=== PATIENT | female | born 1965 | race Caucasian/White ===

== ENCOUNTER → 2024-04-24 08:59 | Outpatient (REF) | payer BC, SELFPAY | LOC: MRI 3T 08:59 | PROVIDERS: ATTENDING PHYSICIAN Internal Medicine | DX: M54.12 Radiculopathy, cervical region (principal); M54.16 Radiculopathy, lumbar region | CPT/HCPCS: 72141 ==

== ENCOUNTER → 2024-04-25 06:34 | Outpatient (REF) | payer BC, SELFPAY | LOC: MRI 3T 06:34 | PROVIDERS: ATTENDING PHYSICIAN Internal Medicine | DX: M54.12 Radiculopathy, cervical region (principal); M54.16 Radiculopathy, lumbar region | CPT/HCPCS: 72148 ==

== ENCOUNTER → 2024-04-26 10:14 | Outpatient (REF) | payer BC, SELFPAY ==
[2024-04-26 11:02] LABS: Urine Albumin Negative (Neg - Trace); Urine Bilirubin Negative (Negative); Urine Character Clear (Clear); Urine Color Yellow; Urine Glucose Negative (Negative); Urine Ketone Negative (Negative); Urine Leukocyte 1+ (Negative); Urine Nitrite Negative (Negative); Urine Occult Blood Negative (Negative); Urine Urobilinogen Negative (Neg - 1+)
[2024-04-26 11:16] LABS: % Basophils 0.9 % (0-2); % Eosinophils 2.5 % (0-6); % Immature Granulocytes 0.3 % (0-0.5); % Lymphocytes 31.1 % (20.5-51.1); % Neutrophils 58.2 % (42.2-75.2); Absolute Basophils 0.1 10^3/uL (0-0.2); Absolute Eosinophils 0.2 10^3/uL (0-0.7); Absolute Lymphocytes 2.9 10^3/uL (1.2-3.4); Absolute Monocytes 0.7 10^3/uL (0.1-0.6); Absolute Neutrophils 5.4 10^3/uL (1.4-6.5); Hematocrit 41.7 % (37.0-47.0); Hemoglobin 13.8 g/dL (12.0-16.0); Mean Corp Hgb Conc. 33.1 g/dL (33.0-37.0); Mean Corpuscular Hgb 28.5 pg (27.0-31.0); Mean Platelet Volume 9.2 fL (7.4-10.4); Nucleated Red Blood Cells % 0 %; Platelet Count 253 10^3/uL (130-400); Red Blood Cell Count 4.85 10^6/uL (4.20-5.40); Red Cell Dist. Width 14.1 % (11.5-14.5); White Blood Cell Count 9.2 10^3/uL (4.8-10.8)
[2024-04-26 11:43] LABS: Urine Red Blood Cell 0-2 /HPF (0-2)
[2024-04-26 11:44] LABS: Urine Bacteria Few (Negative)
[2024-04-26 12:02] LABS: Glycohemoglobin (HgbA1c) 5.6 % (4.0-5.6)
[2024-04-26 12:06] LABS: ALT (SGPT) 24 U/L (0-35); AST (SGOT) 35 U/L (14-36); Albumin 5.1 g/dl (3.5-5.0); Alkaline Phosphatase 86 U/L (38-126); Blood Urea Nitrogen 18 mg/dl (7-17); Carbon Dioxide 27 mmol/L (22-30); Chloride 99 mmol/L (98-107); Glucose 93 mg/dl (70-99); HDL Cholesterol 54 mg/dl; LDL Cholesterol, Calculated 118 mg/dl; Potassium 4.6 mmol/L (3.5-5.1); Sodium 141 mmol/L (135-145); Total Bilirubin 0.5 mg/dl (0.2-1.3); Total Cholesterol 221 mg/dl (50-199); Total Protein 7.9 g/dl (6.3-8.2); Triglyceride 247 mg/dl (10-149); Very Low Density Lipoprotein 49 mg/dl (0-30); eGFR > 60.00
[2024-04-26 12:17] LABS: TSH 0.23 uIU/ml (0.47-4.68)
== END ==
LOC: REG 10:14
PROVIDERS: ATTENDING PHYSICIAN Internal Medicine
DX: Z00.00 Encounter for general adult medical examination without abnormal findings (principal); E55.9 Vitamin D deficiency, unspecified
CPT/HCPCS: 36415; 80053; 80061; 81003; 81015; 82306; 83036; 84443; 85025; 87086

== ENCOUNTER → 2024-06-21 13:38 | Outpatient (REF) | payer BC, SELFPAY ==
[2024-06-21 15:53] VITALS: BP 134/75
== END ==
LOC: RADI 13:38
PROVIDERS: ATTENDING PHYSICIAN Internal Medicine
DX: M54.2 Cervicalgia (principal); M79.601 Pain in right arm; R20.0 Anesthesia of skin
CPT/HCPCS: 62321

== ENCOUNTER → 2024-06-30 11:55 | Outpatient (REF) | payer BC, SELFPAY | LOC: CPAP 11:55 | PROVIDERS: ATTENDING PHYSICIAN Nurse Practitioner Adult Health | DX: N95.0 Postmenopausal bleeding (principal); Z20.2 Contact with and (suspected) exposure to infections with a predominantly sexual mode of transmission | CPT/HCPCS: 87491; 87591; G0123 ==

== ENCOUNTER → 2024-07-06 11:19 | Outpatient (REF) | payer BC, SELFPAY | LOC: RAD 11:19 | PROVIDERS: ATTENDING PHYSICIAN Nurse Practitioner Adult Health; FAMILY PHYSICIAN Internal Medicine | DX: N95.0 Postmenopausal bleeding (principal) | CPT/HCPCS: 76830; 76856 ==

== ENCOUNTER → 2024-07-20 12:46 | Outpatient (REF) | payer BC, SELFPAY ==
[2024-07-20 14:45] VITALS: BP 128/79; BP_SYST 80
[2024-07-20 15:35] VITALS: BP 128/79
== END ==
LOC: RADI 12:46
PROVIDERS: ATTENDING PHYSICIAN Internal Medicine
DX: M54.12 Radiculopathy, cervical region (principal); M54.2 Cervicalgia; M79.601 Pain in right arm; R20.0 Anesthesia of skin
CPT/HCPCS: 62321

== ENCOUNTER → 2024-08-03 14:29 | Outpatient (REF) | payer BC, SELFPAY ==
[2024-08-03 14:34] VITALS: BP 129/70; BP_SYST 82
[2024-08-03 14:40] VITALS: BP 129/70; BP_SYST 82
[2024-08-03 15:25] VITALS: BP 118/70; BP_SYST 80
[2024-08-03 15:27] VITALS: BP 118/70
== END ==
LOC: RADI 14:29
PROVIDERS: ATTENDING PHYSICIAN Internal Medicine
DX: M54.12 Radiculopathy, cervical region (principal); M54.2 Cervicalgia; M79.601 Pain in right arm; R20.0 Anesthesia of skin
CPT/HCPCS: 62321

== ENCOUNTER → 2024-12-01 13:52 | Outpatient (REF) | payer BC, SELFPAY | LOC: WDC 13:52 | PROVIDERS: ATTENDING PHYSICIAN Nurse Practitioner Adult Health; FAMILY PHYSICIAN Internal Medicine | DX: Z12.31 Encounter for screening mammogram for malignant neoplasm of breast (principal) | CPT/HCPCS: 77063; 77067 ==

== ENCOUNTER → 2024-12-02 14:34 | Outpatient (REF) | payer BC, SELFPAY ==
[2024-12-02 21:06] LABS: CA 125 < 5.5 U/mL (0-35)
== END ==
LOC: REG 14:34
PROVIDERS: ATTENDING PHYSICIAN Nurse Practitioner Adult Health; FAMILY PHYSICIAN Internal Medicine
DX: N83.202 Unspecified ovarian cyst, left side (principal)
CPT/HCPCS: 36415; 86304

== ENCOUNTER → 2024-12-22 08:47 | Outpatient (REF) | payer BC, SELFPAY | LOC: WDC 08:47 | PROVIDERS: ATTENDING PHYSICIAN Nurse Practitioner Adult Health; FAMILY PHYSICIAN Internal Medicine | DX: R92.8 Other abnormal and inconclusive findings on diagnostic imaging of breast (principal) | CPT/HCPCS: 76642 ==

== ENCOUNTER → 2024-12-31 06:29 | Outpatient (REF) | payer BC, SELFPAY ==
--- NOTE | 2024-12-31 09:15 | OID.BR.INTR ---
[facility] - Initial
- -
Date of Contact: 12/31/24
Met with patient. Patient given written information on navigator services at [facility]. Will follow up as needed per protocol.
== END ==
LOC: WDC 06:29
PROVIDERS: ATTENDING PHYSICIAN Nurse Practitioner Adult Health
DX: N63.20 Unspecified lump in the left breast, unspecified quadrant (principal)
CPT/HCPCS: 88305; 19081; 76098; A4648

== ENCOUNTER → 2025-01-17 07:38 | Outpatient (REF) | payer BC, SELFPAY ==
[2025-01-17 12:02] LABS: % Basophils 0.7 % (0-2); % Immature Granulocytes 0.4 % (0-0.5); % Monocytes 6.5 % (1.7-9.3); % Neutrophils 61.4 % (42.2-75.2); Absolute Basophils 0.1 10^3/uL (0-0.2); Absolute Eosinophils 0.3 10^3/uL (0-0.7); Absolute Immature Granulocytes 0.1 10^3/uL (0-0.05); Absolute Lymphocytes 3.2 10^3/uL (1.2-3.4); Absolute Monocytes 0.8 10^3/uL (0.1-0.6); Hematocrit 41.3 % (37.0-47.0); Hemoglobin 13.8 g/dL (12.0-16.0); Mean Corp Hgb Conc. 33.4 g/dL (33.0-37.0); Mean Corpuscular Hgb 28.8 pg (27.0-31.0); Mean Platelet Volume 9.2 fL (7.4-10.4); Nucleated Red Blood Cells % 0 %; Platelet Count 307 10^3/uL (130-400); Red Cell Dist. Width 13.7 % (11.5-14.5); White Blood Cell Count 11.5 10^3/uL (4.8-10.8)
[2025-01-17 12:32] LABS: Glycohemoglobin (HgbA1c) 6.1 % (4.0-5.6)
[2025-01-17 12:44] LABS: ALT (SGPT) 26 U/L (0-35); AST (SGOT) 29 U/L (14-36); Albumin 5.1 g/dl (3.5-5.0); Alkaline Phosphatase 86 U/L (38-126); Blood Urea Nitrogen 21 mg/dl (7-17); Carbon Dioxide 28 mmol/L (22-30); Chloride 105 mmol/L (98-107); Glucose 107 mg/dl (70-99); Potassium 4.8 mmol/L (3.5-5.1); Sodium 143 mmol/L (135-145); Total Bilirubin 0.4 mg/dl (0.2-1.3); Total Protein 8.3 g/dl (6.3-8.2); eGFR > 60.00
== END ==
LOC: REG 07:38
PROVIDERS: ATTENDING PHYSICIAN Internal Medicine; FAMILY PHYSICIAN Internal Medicine
DX: K76.0 Fatty (change of) liver, not elsewhere classified (principal); R10.33 Periumbilical pain; Z80.0 Family history of malignant neoplasm of digestive organs
CPT/HCPCS: 36415; 80053; 83036; 85025

== ENCOUNTER → 2025-01-19 09:34 | Outpatient (REF) | payer BC, SELFPAY | LOC: RAD 09:34 | PROVIDERS: ATTENDING PHYSICIAN Internal Medicine; FAMILY PHYSICIAN Internal Medicine | DX: K76.0 Fatty (change of) liver, not elsewhere classified (principal); R10.33 Periumbilical pain; Z80.0 Family history of malignant neoplasm of digestive organs | CPT/HCPCS: 74177; Q9967 ==

== ENCOUNTER → 2025-01-21 15:55 | Outpatient (REF) | payer BC, SELFPAY | LOC: MRI 3T 15:55 | PROVIDERS: ATTENDING PHYSICIAN Internal Medicine; FAMILY PHYSICIAN Internal Medicine | DX: K86.2 Cyst of pancreas (principal) | CPT/HCPCS: 74183; A9575 ==

== ENCOUNTER 2025-02-14 16:33 | Emergency (ER) | payer BC, SELFPAY ==
[2025-02-14 16:38] VITALS: BP 143/91
[2025-02-14] MEDS: ZOFRAN 4 MG IV (17:36)
[2025-02-14] MEDS: NSS 500 IV (17:36)
[2025-02-14] MEDS: TORADOL 15 MG IV (17:36)
--- NOTE | 2025-02-14 17:47 | ED.GENMED ---
History of Present Illness
General
Chief Complaint: Headache
Time Seen by Provider: 02/14/25 17:15
Nursing documentation reviewed up to this point in time: agreed with
History of Present Illness
History of Present Illness:
59-year-old female presents to the ER for treatment of headache with associated nausea vomiting and diarrhea. Patient states that she started with diarrhea on Friday. She was able to hydrate but then subsequently developed vomiting. Patient
states that she started with a generalized headache, similar to prior headaches, but due to inability to tolerate p.o. she has been unable to take the usual remedies which help when she gets a headache, namely Excedrin. She denies any fevers or
chills. No syncope or trauma. She was traveling over the weekend to the beach and ate a lot of seafood. She denies any specific sick contacts, none of her travel companions are ill. She does report light sensitivity, similar to prior headaches.
No focal weakness or paresthesias. She does take Lasix and Bystolic for her history of hypertension which she did take this morning. She denies chest pain or shortness of breath. No rash.
Past History
Past History
ED Past Medical History: Asthma, GERD, HTN, Other (Chronic neck pain, back pain, headaches ) and Other (Polycystic ovarian syndrome with insulin resistance. takes Glucophage 2 gms daily.)
ED Past Surgical History: , Tonsilectomy and Other (Sinus surgery )
Social History
Tobacco: Non-smoker
Personal:
Living: with family
Employment: Employed ([employer] )
Review of Systems
Review of Systems
Allergies reviewed?: Yes
Phy Exam
Physical Exam
Physical Exam:
Patient is awake, alert, obese, appears in no acute distress, moving easily on the stretcher without assistance, PERRL, EOMI, no facial asymmetry, mucous membranes moist, moving neck easily in all directions without apparent discomfort, heart
regular rate and rhythm no murmurs or ectopy, lungs are clear to auscultation without wheezes rales or rhonchi, moving extremities symmetrically without focal deficit, no peripheral edema, GCS is 15, speech is clear
Course
Orders/Labs/Results
Orders:
Orders
02/14/25 17:22
0.9% Sodium Chloride 500 ml [Nss] 500 ml IV BOLUS
Ketorolac [Toradol] 15 mg IV NOW STA
Ondansetron Injectable [Zofran] 4 mg IV NOW STA
Vital Signs
Initial and Last Documented VS:
Initial Vital Signs
Temp Pulse Resp BP Pulse Ox
98.2 F 91 20 143/91 99
02/14/25 16:38 02/14/25 16:38 02/14/25 16:38 02/14/25 16:38 02/14/25 16:38
Last Documented Vital Signs
Temp Pulse Resp BP Pulse Ox
98.2 F 91 20 143/91 99
02/14/25 16:38 02/14/25 16:38 02/14/25 16:38 02/14/25 16:38 02/14/25 18:13
MDM/Problems Addressed
Differential Diagnosis Includes:
Differential diagnosis to consider but not limited to gastroenteritis, foodborne illness, migraine along with other etiologies considered
Chronic conditions affecting care:
Hypertension
Comment
Comment:
Labs are considered but not ordered given overall benign appearance of patient with normal vital signs
*Pulse Oximetry
SaO2: 99
Oxygen Mode of Delivery: Room air
Patient hypoxic: no
*Critical Care Note
Total Time (30-74mins, 75-104mins- exclusive of procedures): Not Applicable
Update Note
Update Note:
Patient agrees with plan for symptomatic treatment only. Will give IV fluids, Toradol and Zofran and reassess. Patient was given ice chips.
ED Attending Note
-
Portions of this chart may have been created with voice recognition software.� Occasional wrong word or��sound alike� substitutions may have occurred due to the inherent limitations of voice recognition software.
Discharge Plan
Departure
Patient Disposition: Home (Routine Discharge)
Date of Disposition: 02/14/25
Time of Disposition: 18:45
Patient with high blood pressure during this ER visit?: Yes
Discharge Problem:
Headache, Nausea vomiting and diarrhea
Instructions: Headache, Adult (DC), BLOOD PRESSURE
Prescriptions:
New
ondansetron 4 mg tablet,disintegrating
4 mg PO Q6H PRN (Reason: nausea and vomiting) Qty: 10 0RF
No Action
furosemide 20 MG tablet
20 mg PO DAILY
metformin 500 MG tablet extended release 24 hr
1,000 mg PO BID
nebivolol [Bystolic] 5 MG tablet
5 mg PO DAILY
multivitamin 1 EACH tablet
1 ea PO DAILY
montelukast 10 MG tablet
10 mg PO DAILY
flaxseed oil 1,000 MG capsule
1,000 mg PO BID
ibuprofen [IBU-200] 200 MG tablet
800 mg PO Q8HPRN PRN (Reason: pain)
pocsg-[id number]-epa-fish oil 1 EACH capsule
1 ea PO BID
khyvkoj-fgyawtulzcwfp-rvdzowbq 1 TABLET tablet
2 tab PO Q8HPRN PRN (Reason: headache)
famotidine [Acid Controller] 20 MG tablet
20 mg PO BID
fluoxetine 40 mg Capsule
40 mg PO DAILY
cholecalciferol (vitamin D3) [Vitamin D3] 125 mcg (5,000 unit) Tablet
125 mcg PO DAILY
Trulicity 3 mg/0.5 mL Pen Injector
3 mg SC QWEEK
turmeric root extract 500 mg Capsule
500 mg PO DAILY
multivitamin [Hair,Nails and Skin Vitamin] Tablet
3 tab PO DAILY
Provitalize Probiotic
2 cap PO DAILY
magnesium glycinate 100 mg magnesium Capsule
100 mg PO QHS
Referrals:
Yolanda Mae DO [Family Provider, Internal Medicine]
Interventions
Interventions:
*Risk Screen - Suicide Last Done: 02/14/25 16:35
*Neglect/Abuse Screening Last Done: 02/14/25 16:35
Discharge Date and Time
Print Language: CITIZEN OF [place]
== END 2025-02-14 19:08 | disposition home or self-care (01) ==
LOC: EMR 16:33
PROVIDERS: EMERGENCY PHYSICIAN Emergency Medicine; FAMILY PHYSICIAN Internal Medicine
DX: R51.9 Headache, unspecified (principal); R11.2 Nausea with vomiting, unspecified; R19.7 Diarrhea, unspecified; I10 Essential (primary) hypertension; J45.909 Unspecified asthma, uncomplicated
CPT/HCPCS: 96374; 96375; 96361; 99284

== ENCOUNTER 2025-03-17 06:32 | Day surgery (SDC) | payer BC, SELFPAY ==
[2025-03-17 10:09] LABS: Glucose - Point of Care 123 mg/dl (70-99)
== END 2025-03-17 12:36 | disposition home or self-care (01) ==
LOC: GI 06:32
PROVIDERS: ATTENDING PHYSICIAN Internal Medicine
DX: Z12.11 Encounter for screening for malignant neoplasm of colon (principal); D12.5 Benign neoplasm of sigmoid colon; K57.30 Diverticulosis of large intestine without perforation or abscess without bleeding; K56.2 Volvulus; K64.9 Unspecified hemorrhoids; Z98.890 Other specified postprocedural states; Z86.0101 Personal history of adenomatous and serrated colon polyps; Z83.719 Family history of colon polyps, unspecified
CPT/HCPCS: 45385; 82962; 88305

== ENCOUNTER → 2025-04-20 11:02 | Outpatient (REF) | payer BC, SELFPAY | LOC: CPAP 11:02 | PROVIDERS: ATTENDING PHYSICIAN Nurse Practitioner Adult Health | DX: Z01.419 Encounter for gynecological examination (general) (routine) without abnormal findings (principal) | CPT/HCPCS: 87624 ==

== ENCOUNTER → 2025-05-10 12:05 | Outpatient (REF) | payer BC, SELFPAY | LOC: CLAB 12:05 | PROVIDERS: ATTENDING PHYSICIAN Obstetrics & Gynecology Gynecology | DX: N87.9 Dysplasia of cervix uteri, unspecified (principal) | CPT/HCPCS: 88305; 88341; 88342 ==

== ENCOUNTER → 2025-06-27 14:23 | Outpatient (REF) | payer BC, SELFPAY ==
[2025-06-23 16:28] LABS: INR 0.86; PT 12.2 Sec (11.4-14.6)
[2025-06-27 14:34] VITALS: BP 116/89; BP_SYST 74
[2025-06-27 15:56] VITALS: BP 135/78
== END ==
LOC: RADI 14:23
PROVIDERS: ATTENDING PHYSICIAN Internal Medicine
DX: M54.12 Radiculopathy, cervical region (principal); M54.2 Cervicalgia; Z01.812 Encounter for preprocedural laboratory examination; Z01.818 Encounter for other preprocedural examination
CPT/HCPCS: 36415; 62321; 85610

== ENCOUNTER → 2025-07-13 14:29 | Outpatient (REF) | payer BC, SELFPAY ==
[2025-07-13 14:58] VITALS: BP 132/79; BP_SYST 69
== END ==
LOC: RADI 14:29
PROVIDERS: ATTENDING PHYSICIAN Internal Medicine
DX: M54.12 Radiculopathy, cervical region (principal); M54.2 Cervicalgia
CPT/HCPCS: 62321